=== PATIENT | male | born 1950 | race Caucasian/White ===

== ENCOUNTER → 2022-08-13 10:47 | Outpatient (CLI) | payer OTHER, SELFPAY ==
[2022-08-13 11:33] LABS: Influenza A - CEPHEID Flu A NEGATIVE (NEGATIVE); Influenza B - CEPHEID Flu B NEGATIVE (NEGATIVE); Respiratory Syncytial Virus Negative (Negative)
[2022-08-13 11:34] LABS: COVID-19 CEPHEID 4-PLEX PCR Negative (Negative)
== END ==
PROVIDERS: Visit Provider Nurse Practitioner Family
DX: R05.1 Acute cough (principal); Z20.822 Contact with and (suspected) exposure to COVID-19
CPT/HCPCS: 0241U

== ENCOUNTER 2024-02-03 16:06 | Emergency (ER) | payer SELFPAY ==
--- NOTE | 2024-02-03 16:16 | DI.CT.S_ITS ---
PROCEDURE: CT HEAD/BRAIN WO CON INDICATIONS: blunt head inj, frontal TECHNIQUE: Noncontrast 4.5 mm thick angled axial sections acquired from the foramen magnum to the vertex, with coronal and sagittal reformats. For radiation dose reduction, the following was used: automated exposure control, adjustment of mA and/or kV according to patient size. COMPARISON: None. FINDINGS: Image quality: Diagnostic. CSF spaces: Basal cisterns are patent. No extra-axial fluid collections. The ventricles are symmetric in size and shape. Brain: No intracranial bleeds or masses. There is cerebral volume loss for age, with resultant ventricular and sulcal prominence. There are periventricular and deep white matter chronic small vessel ischemic changes. There is intracranial internal carotid artery atherosclerosis. Skull and face: Calvarium and visualized facial bones appear intact, without suspicious lesions. Sinuses: Scattered ethmoid and right maxillary sinus mucosal thickening. Suspected right maxillary sinus mucous retention cyst. Remainder of the paranasal sinuses appear clear. Mastoid air cells are well-aerated. IMPRESSION: 1. CT head without acute intracranial abnormalities or acute calvarial fractures. 2. Age-related senescent changes and sequela of chronic small vessel ischemic disease. 3. Scattered ethmoid and right maxillary sinusitis. Dictated by: Crescencio Guzman M.D. on 02/03/2024 at 15:46 Approved by: Crescencio Guzman M.D. on 02/03/2024 at 15:48
[2024-02-03 16:18] VITALS: BP 149/91; PULSE 78; RESP 18; TEMP 36.3; O2SAT 95; BMI 21.4
--- NOTE | 2024-02-03 16:19 | ED_ITS ---
HPI - Head Injury General Chief complaint: Head Injury Stated complaint: Head Injury Time Seen by Provider: 02/03/24 16:13 History of Present Illness HPI Narrative: 73-year-old male with no reported past medical history presents by private vehicle from home for evaluation after head injury. Patient accidentally struck his head while walking under a deck, hitting the top of his head against a metal object. Denies loss of consciousness, denies use of blood thinners. Uncertain tetanus status. Related Data Previous Rx's Medication Instructions Recorded benzonatate 100 mg capsule 100 mg PO BID PRN cough #20 caps 08/13/22 Allergies Allergy/AdvReac Type Severity Reaction Status Date / Time No Known Drug Allergies Allergy Unverified 08/13/22 10:37 Patient History Social History Smoking Status: Never smoker Smoking Status: Never smoker Exam Initial Vital Signs Initial Vital Signs: Vital Signs Temperature 97.4 F L 02/03/24 16:18 Pulse Rate 78 02/03/24 16:18 Respiratory Rate 18 02/03/24 16:18 Blood Pressure 149/91 H 02/03/24 16:18 Pulse Oximetry 95 02/03/24 16:18 Oxygen Delivery Method Room Air 02/03/24 16:18 Const: Awake, alert, no acute distress, nontoxic appearing Eyes: PERRLA, EOMI Skin: Warm, Dry, intact, superficial abrasion top of scalp Neuro: AO x3, CN II-XII grossly intact, moves all extremities Course Orders Ordered: ED Orders 02/03/24 16:16 CT head/brain wo con Stat Discontinued Medications Diphtheria/Tetanus/Acell Pertussis (Tet,Diph,Pertuss(Acell),Vac/Pf 0.5 Ml Syringe) 0.5 ml IM .ONCE ONE Stop: 02/03/24 16:41 Last Admin: 02/03/24 16:53 Dose: 0.5 ml Documented By: SB Vital Signs Vital signs: Vital Signs - 8 hr 02/03/24 16:18 02/03/24 16:21 02/03/24 16:30 Temperature 97.4 F L Pulse Rate 78 77 71 Respiratory Rate 18 Blood Pressure 149/91 H Pulse Oximetry 95 97 96 Oxygen Delivery Method Room Air 02/03/24 16:39 02/03/24 16:39 02/03/24 17:00 Temperature Pulse Rate 74 Respiratory Rate Blood Pressure 131/80 137/79 Pulse Oximetry 95 Oxygen Delivery Method 02/03/24 17:00 Temperature Pulse Rate 72 Respiratory Rate Blood Pressure Pulse Oximetry 94 Oxygen Delivery Method MDM - Head Injury Imaging Data CT scan - head: Radiologist's Impression: PROCEDURE: CT HEAD/BRAIN WO CON INDICATIONS: blunt head inj, frontal TECHNIQUE: Noncontrast 4.5 mm thick angled axial sections acquired from the foramen magnum to the vertex, with coronal and sagittal reformats. For radiation dose reduction, the following was used: automated exposure control, adjustment of mA and/or kV according to patient size. COMPARISON: None. FINDINGS: Image quality: Diagnostic. CSF spaces: Basal cisterns are patent. No extra-axial fluid collections. The ventricles are symmetric in size and shape. Brain: No intracranial bleeds or masses. There is cerebral volume loss for age, with resultant ventricular and sulcal prominence. There are periventricular and deep white matter chronic small vessel ischemic changes. There is intracranial internal carotid artery atherosclerosis. Skull and face: Calvarium and visualized facial bones appear intact, without suspicious lesions. Sinuses: Scattered ethmoid and right maxillary sinus mucosal thickening. Suspected right maxillary sinus mucous retention cyst. Remainder of the paranasal sinuses appear clear. Mastoid air cells are well-aerated. IMPRESSION: 1. CT head without acute intracranial abnormalities or acute calvarial fractu res. 2. Age-related senescent changes and sequela of chronic small vessel ischemic disease. 3. Scattered ethmoid and right maxillary sinusitis. Dictated by: Crescencio Guzman M.D. on 02/03/2024 at 15:46 Approved by: Crescencio Guzman M.D. on 02/03/2024 at 15:48 [facility] [place] Narrative Medical decision making narrative: Accidental head injury, no loss of consciousness. Superficial abrasion on top of scalp without laceration that would need sutures or jamia. CT brain negative for acute findings. Tetanus updated. Supportive care measures counseled for home. Discharge Plan Departure Patient Disposition: Home Clinical Impression: Closed head injury, Abrasion of scalp Instructions: DI for Closed Head Injury Activity Restrictions/Additional Instructions: Your brain CT today was normal. Take Tylenol and ibuprofen as needed for discomfort, apply ice to your forehead for swelling. You received a tetanus vaccination update today, which should be good for the next 10 years Prescriptions: No Action benzonatate 100 mg capsule 100 mg PO BID PRN (Reason: cough) Qty: 20 0RF Referrals: Miscellaneous,Doctor, MD [Primary Care Provider] - Stand Alone Forms: Patient Portal/API
[2024-02-03 16:21] VITALS: PULSE 77; O2SAT 97
[2024-02-03 16:30] VITALS: PULSE 71; O2SAT 96
[2024-02-03 16:39] VITALS: BP 131/80; PULSE 74; O2SAT 95
[2024-02-03] MEDS: TET,DIPH,PERTUSS(ACELL),VAC/PF 0.5 ML SYRINGE IM (16:53)
[2024-02-03 17:00] VITALS: BP 137/79; PULSE 72; O2SAT 94
== END 2024-02-03 17:15 | disposition home or self-care (01) ==
PROVIDERS: Emergency Provider Emergency Medicine
DX: S00.01XA Abrasion of scalp, initial encounter (principal); S09.90XA Unspecified injury of head, initial encounter; W22.8XXA Striking against or struck by other objects, initial encounter; Z23 Encounter for immunization
CPT/HCPCS: 70450; 90471; 99283; 99284; 90715